=== PATIENT | male | born 1970 | race Caucasian/White ===

== ENCOUNTER → 2017-03-30 | Outpatient (CLI) | payer BC | END | disposition home or self-care (01) | LOC: GMAJ 10:55 | PROVIDERS: ATTEND Family Medicine | DX: Z00.00 Encounter for general adult medical examination without abnormal findings (principal) ==

== ENCOUNTER → 2017-05-22 | Outpatient (CLI) | payer BC ==
--- NOTE | 2017-05-22 15:15 | CT ---
EXAM DESCRIPTION: Abdoment/Pelvis w/o Contrast CLINICAL HISTORY: LEFT LOWER QUADRANT PAIN COMPARISON: None Available TECHNIQUE: CT of the abdomen and Pelvis was performed without IV contrast. This exam was performed according to our departmental dose-optimization program, which includes automated exposure control, adjustment of the mA and/or kV according to patient size and/or use of iterative reconstruction technique. FINDINGS: No lung base abnormality. No pneumoperitoneum, adenopathy or ascites. No abdominal aortic aneurysm. No calcified gallstone. The liver, spleen, pancreas, adrenals and kidneys are unremarkable for noncontrast technique. No dilated small bowel loops or mesenteric inflammation. No bladder wall thickening. The prostate is not enlarged. No colonic wall thickening or pericolonic inflammation. Normal appendix. There is a moderate amount stool and gas scattered throughout the colon. No acute bone lesion. IMPRESSION: Moderate amount of colonic stool and gas, otherwise unremarkable exam. Electronically signed by: Hal Ba MD 05/22/2017 3:14 PM BUSHLER
== END ==
LOC: CT 09:09
PROVIDERS: ATTEND Internal Medicine Gastroenterology
DX: R10.32 Left lower quadrant pain (principal)

== ENCOUNTER → 2018-06-28 | Outpatient (CLI) | payer BC ==
--- NOTE | 2018-06-28 16:58 | MRI ---
EXAM DESCRIPTION: Brain w/o Contrast: MRI. CLINICAL HISTORY: R41.9. Unspecified symptoms and signs involving cognitive functions and awareness. COMPARISON: MRI scan of the brain without contrast 07/23/2015. TECHNIQUE: Multiplanar, high-field MRI unit, multiple diffusion sequences, multiple conventional sequences without contrast. FINDINGS: Normal FLAIR and T2-weighted signal in the periventricular white matter and farmer-white matter junctions of the cerebral hemispheres. . No hemorrhage, no cerebral edema, no mass-effect. Normal signal in the bilateral basal ganglia. Normal signal in the brainstem and cerebellar hemispheres. No hemorrhage, no cerebral edema, no mass-effect. Concordance of the diffusion and non-diffusion sequences with no diffusion restriction. Cortical sulci, ventricles, and other CSF spaces, and the subdural spaces are normally configured for patients age. No effacement or displacement. No midline shift. No extra-axial hemorrhage. Normal flow signal void in the major vessels of the [place], and the venous sinuses. IACs are symmetric bilaterally. Normal signal in the bilateral mastoid air cells. No mass effect in the bilateral cerebellopontine angles. Pituitary gland occupies most of the sella. Base of the cerebellar tonsils is at the level of the foramen magnum. Polyp versus mucosal retention cyst in the posterior inferior left maxillary antrum. Bilateral mucoperiosteal thickening in the antra and also in the ethmoid air cells. Similar findings on the prior study.. The bony calvarium is intact. IMPRESSION: 1. Normal MRI scan of the brain without gadolinium IV contrast. Normal farmer and white matter signal. No intra-axial extra-axial hemorrhage. No mass effect, no midline shift, and no cerebral edema. Stable since the prior study. 2. Normal noncontrast diffusion MRI images with no evidence of acute or subacute infarction or significant ischemia. Stable since the prior study. 3. Paranasal sinus disease was also seen on the prior study. Please see above details. Electronically signed by: Humberto Kingston MD 06/28/2018 4:55 PM CDT
== END ==
LOC: MRI 09:52
PROVIDERS: ATTEND Family Medicine
DX: R41.9 Unspecified symptoms and signs involving cognitive functions and awareness (principal); J34.9 Unspecified disorder of nose and nasal sinuses

== ENCOUNTER 2018-11-01 05:13 | Day surgery (SDC) | payer BC ==
[2018-11-01] MEDS ORDERED: LACTATED RINGERS 1,000 ML ONE (07:17)
[2018-11-01] MEDS ORDERED: cefOXitin SODIUM 2 GM INJ IVPB ONE (07:17)
[2018-11-01] MEDS ORDERED: SODIUM CHL 0.9% 50ML MIN-BAG+ 50 ML IVPB ONE (07:22)
[2018-11-01] MEDS ORDERED: PROPOFOL 200 MG/20 ML VIAL IV ONE (10:00)
[2018-11-01] MEDS ORDERED: raNITIdine HCL INJ 25 MG/ML VIAL IV ONE (10:00)
[2018-11-01] MEDS ORDERED: ePHEDrine SULF 50 MG/ML IV ONE (10:00)
[2018-11-01] MEDS ORDERED: DEXAMETHASONE INJ 10 MG/ML VIAL IV ONE (10:00)
[2018-11-01] MEDS ORDERED: KETOROLAC TROMETHAMINE INJ 30 MG/ML VIAL IV ONE (10:00)
[2018-11-01] MEDS ORDERED: LIDOCAINE 1% 10 ML VIAL INJ ONE (10:00)
[2018-11-01] MEDS ORDERED: LACTATED RINGERS 1,000 ML IVS ONE (12:05)
[2018-11-01] MEDS ORDERED: LACTATED RINGERS 1,000 ML BAG IV ONE (12:05)
[2018-11-01] MEDS ORDERED: ROCURONIUM BROMIDE 10 MG/ML VIAL ONE (12:20)
[2018-11-01] MEDS ORDERED: KETAMINE HCL 50 MG/ML SYG IV ONE (12:20)
[2018-11-01] MEDS ORDERED: fentaNYL CITRATE INJ 50 MCG/ML AMP ONE (12:20)
[2018-11-01] MEDS ORDERED: MIDAZOLAM INJ 2 MG/2 ML VIAL ONE (12:20)
[2018-11-01] MEDS ORDERED: BUPIVACAINE 0.5% W/EPI 30 ML VIAL INJ ONE (12:23)
[2018-11-01] MEDS ORDERED: LIDOCAINE 2 % GEL 5 ML TUBE TOP ONE (12:23)
[2018-11-01] MEDS ORDERED: SUGAMMADEX SODIUM 200 MG/2 ML VIAL IV ONE (13:57)
[2018-11-01 14:00] VITALS: O2SAT 96
--- NOTE | 2018-11-01 14:24 | OP ---
DATE OF PROCEDURE: 11/01/18 PREOPERATIVE DIAGNOSIS: 1. Internal and external hemorrhoids, bleeding and pain, grade 3 essentially. POSTOPERATIVE DIAGNOSIS: 1. Internal and external hemorrhoids, bleeding and pain, grade 3 essentially. PROCEDURE: 1. Complete excision of internal and external hemorrhoids x2. 2. Bilateral pudendal nerve blocks for postoperative pain control. SURGEON: Vitor Salgado MD ANESTHESIA: General and local. FINDINGS: He had a very large internal and external complex, almost circumferentially. He had a wide patchoulis anus with thinned musculature. No known history of trauma. No evidence of intrasphincteric or perirectal abscess. COMPLICATIONS: None. ESTIMATED BLOOD LOSS : None. SPECIMEN: Left and right hemorrhoid complexes. PLAN: Discharge. INDICATION: The patient presented to the outpatient clinic with some rectal bleeding. He has a known history of prolapsing spontaneously reducing and sometimes manually reducing hemorrhoids. No clinical evidence of rectal prolapse. He presented with pain, so there was suspicion of an abscess, but on initial physical examination, I could not appreciate an abscess nor did he have fevers or chills, but good possibility of an intrasphincteric or deeper abscess was discussed and will be evaluated during surgery. Also, the fact that these are extensive hemorrhoids and may require more than one procedure. We are going to combine excision with possible banding as well. He understood the risks and benefits and postoperative recovery. PROCEDURE: He was brought to the Operative Suite in supine position. General anesthesia was induced. He was placed in a prone, jackknife position with gluteal cheeks taped apart, prepped and draped in sterile fashion. Digital rectal exam revealed no masses. Again, he had a wide patchoulis anus with thinned musculature, but he did have what appeared to be intact intrasphincteric groove, large internal and external components, both right and left, anterior, mid and posterior hemorrhoid complexes. Naturally, for real estate purposes, we would be unable to excise all of them completely. As we did anal speculum exam, I was able to get the majority of the left lateral and again he did have a wide anal canal, so loss of tissue was not a huge concern for postoperative stricture, so I ligated the base with 3-0 Vicryl in the left lateral and then elliptical incision to the external perianal skin beyond the external component and then we took it out down to the internal sphincter muscles, preserving this muscle, and undermined a bit to the externals on either side. Once this was done, we had good hemostasis. We then closed in a running locking fashion and able to grab the internals in the area on both sides of this, so essentially completely removing that large left complex. The same procedure was performed on the right although it seemed larger over here. He had such a lateral mid component that taking the right anterior, right posterior and just leave that large mid one, so we were able again to take a wide excision on the middle hemorrhoid and then combine the anterior and posterior bit with the closure. Internal sphincter muscle was preserved. A lot of local anesthesia was placed and based on anatomic landmarks, we performed bilateral pudendal nerve blocks with 3 mL of 0.5% Marcaine with epinephrine on each side, additional lidocaine at the incisions and surrounding area. On examination, there were a few hemorrhoids remaining, of course, but at this point our bands were breaking secondary to I think the heat processing, so no bands were placed, but it really looked like we an excellent result without any additional banding at this point. Dressing was placed with mesh panties and some lidocaine jelly. He was then awakened and taking to the Recovery Room in stable condition to be discharged. #[id number] cc: Vitor Stephens MD [facility]ENTER[facility]em[facility]
[2018-11-01 15:58] VITALS: BP 122/90; TEMP 97.7
== END 2018-11-01 15:50 ==
LOC: AMB 05:13
PROVIDERS: ATTEND Surgery
DX: K64.2 Third degree hemorrhoids (principal); G40.909 Epilepsy, unspecified, not intractable, without status epilepticus; Z79.899 Other long term (current) drug therapy
CPT/HCPCS: 00902; 36415; 46260; 80048; 85025; J0694; J1100; J1885; J2250; J2780; J3010; J3490; J7050; J7120

== ENCOUNTER → 2019-01-24 | Outpatient (CLI) | payer BC | LOC: GMAJ 17:01 | PROVIDERS: ATTEND Family Medicine | DX: R56.9 Unspecified convulsions (principal) ==

== ENCOUNTER 2019-02-05 12:14 | Emergency (ER) | payer BC ==
[2019-02-05] MEDS ORDERED: KETOROLAC TROMETHAMINE INJ 30 MG/ML VIAL IV ONE (12:36)
--- NOTE | 2019-02-05 12:38 | ED.PDOC ---
History of Present Illness - General Chief Complaint: Chest Pain/NE Stated Complaint: Intermittent CP Time Seen by Provider: 02/05/19 12:20 Source: patient Exam Limitations: no limitations - History of Present Illness Initial Comments: 48 yo M with hx of epilepsy, GERD who presents for midsternal sharp non radiating intermittent CP for the past 3-4 days, episodes last 3-5 seconds, today has had associated SOB with the CP. Mild dry intermittent cough. Denies f/c, congestion, abd pain, n/v/d, edema. No hx of CAD, PE, DVT. Allergies/Adverse Reactions: Allergies NO KNOWN ALLERGY Allergy (Verified 02/05/19 12:38) Home Medications: Ambulatory Orders Dexlansoprazole [Dexilant] 60 mg PO DAILY 11/23/14 Ascorbic Acid [Vitamin C] 2,000 mg PO DAILY 10/29/18 Lamotrigine [Lamictal] 200 mg PO DAILY 10/29/18 Multi Vitamin 1 tablet PO DAILY 10/29/18 Probiotic 1 tablet PO DAILY 10/29/18 Super B Complex Maxi 1 tablet PO DAILY 10/29/18 Zyrtec 1 tablet PO DAILY 10/29/18 Review of Systems - Review of Systems Constitutional: Denies: chills, fever EENTM: States: no symptoms reported Respiratory: States: short of breath. Denies: cough, orthopnea, stridor, wheezing Cardiology: States: chest pain. Denies: edema, palpitations, syncope Gastrointestinal/Abdominal: Denies: abdominal pain, constipation, diarrhea, nausea, vomiting Genitourinary: Denies: dysuria, frequency, hematuria Musculoskeletal: Denies: back pain, neck pain Skin: Denies: change in color, rash Neurological: Denies: headache, numbness, weakness Endocrine: Denies: increased thirst, increased urine Hematologic/Lymphatic: Denies: easy bleeding, easy bruising Past Medical History (General) - Patient Medical History Hx Seizures: Yes Hx Stroke: No Hx Dementia: No Hx Asthma: No Hx of COPD: No Hx Cardiac Disorders: No Hx Congestive Heart Failure: No Hx Pacemaker: No Hx Hypertension: No Hx Thyroid Disease: No Hx Diabetes: No Hx Gastroesophageal Reflux: No Hx Renal Disease: No Hx Cancer: No Hx of HIV: No Hx Hepatitis C: No Hx MRSA: No - Vaccination History Hx Influenza Vaccination: No - Social History Hx Tobacco Use: No Hx Alcohol Use: No Hx Substance Use: No Hx Substance Use Treatment: No Hx Depression: No Family Medical History - Family History Mother Family History: No Known Physical Exam - Physical Exam General Appearance: Alert, Comfortable, No apparent distress, Well Developed, Well Nourished Neck: full range of motion, supple Respiratory: chest non-tender, lungs clear, normal breath sounds, no respiratory distress, no accessory muscle use Cardiovascular/Chest: normal peripheral pulses, regular rate, rhythm, no edema, no gallop, no JVD, no murmur Peripheral Pulses: radial,right: 2+, radial,left: 2+ Gastrointestinal/Abdominal: normal bowel sounds, non tender, soft, no organomegaly, no pulsatile mass Extremity: normal range of motion, non-tender, normal inspection, no pedal edema, no calf tenderness, normal capillary refill Neurologic: no motor/sensory deficits, alert, normal mood/affect, oriented x 3 Skin Exam: normal color, warm/dry Lymphatic: no adenopathy Progress - Progress Progress: 02/05/19 15:09 I have explained and reviewed all results with the pt. I explained that emergent conditions may arise and to return to the ER for new, worsening, or any persistent conditions. I've explained the importance of f/u for recheck. All questions and concerns addressed at this time. Pt understands and agrees with plan. Pt well appearing, NAD, is stable for discharge. Nano Presley MD Emergency Medicine Physician Billing Number [id number] - Results/Orders Results/Orders: 02/05/19 12:30 EKG STAT Laboratory Results - last 24 hr 02/05/19 02/05/19 02/05/19 12:35 12:35 12:35 WBC 7.1 RBC 4.73 Hgb 14.3 Hct 41.3 L MCV 87.3 MCH 30.3 MCHC 34.7 RDW 12.2 Plt Count 240 MPV 8.4 Absolute Neuts (auto) 4.50 Absolute Lymphs (auto) 1.90 Absolute Monos (auto) 0.50 Absolute Eos (auto) 0.10 Absolute Basos (auto) 0.10 Neutrophils % 63.8 Lymphocytes % 27.3 Monocytes % 7.0 Eosinophils % 0.9 L Basophils % 1.0 D-Dimer, Quantitative Sodium 139 Potassium 3.7 Chloride 104 Carbon Dioxide 22 Anion Gap 16.7 BUN 16 Creatinine 1.03 BUN/Creatinine Ratio 15.5 Random Glucose 121 H Serum Osmolality 280.0 Calcium 8.6 Total Bilirubin 0.3 AST 26 ALT 21 Alkaline Phosphatase 69 Troponin I < 0.02 Serum Total Protein 6.7 Albumin 4.5 Globulin 2.2 L Albumin/Globulin Ratio 2.0 H 02/05/19 02/05/19 12:36 14:36 WBC RBC Hgb Hct MCV MCH MCHC RDW Plt Count MPV Absolute Neuts (auto) Absolute Lymphs (auto) Absolute Monos (auto) Absolute Eos (auto) Absolute Basos (auto) Neutrophils % Lymphocytes % Monocytes % Eosinophils % Basophils % D-Dimer, Quantitative 0.19 Sodium Potassium Chloride Carbon Dioxide Anion Gap BUN Creatinine BUN/Creatinine Ratio Random Glucose Serum Osmolality Calcium Total Bilirubin AST ALT Alkaline Phosphatase Troponin I < 0.02 Serum Total Protein Albumin Globulin Albumin/Globulin Ratio CXR: EXAM: XR Chest, 2 Views CLINICAL HISTORY: CP TECHNIQUE: Frontal and lateral views of the chest. COMPARISON: No relevant prior studies available. FINDINGS: Limitations: None. Lungs: Unremarkable. No consolidation. Pleural space: Unremarkable. No pneumothorax. Heart: Unremarkable. No cardiomegaly. Mediastinum: Unremarkable. Bones/joints: Unremarkable. IMPRESSION: No acute findings in the chest. Electronically signed by: Inga Temple MD 02/05/2019 1:49 PM FABRIC STRETCHER Vital Signs - 24 hr 02/05/19 02/05/19 02/05/19 12:15 12:23 13:00 Temperature 97.6 F Pulse Rate [ 76 76 80 Monitor] Respiratory 18 18 18 Rate Blood Pressure 146/89 [L brachial] O2 Sat by Pulse 97 98 Oximetry 02/05/19 02/05/19 14:00 15:00 Temperature Pulse Rate [ 66 62 Monitor] Respiratory 16 16 Rate Blood Pressure 123/78 129/86 [L brachial] O2 Sat by Pulse 98 98 Oximetry - EKG/XRAY/CT EKG: Sinus - sinus arrhythmia, no ST T wave changes Departure - Departure Clinical Impression: Chest pain, unspecified Qualifiers: Chest pain type: unspecified Qualified Code(s): R07.9 - Chest pain, unspecified Time of Disposition: 15:03 Disposition: Discharge to Home or Self Care Health Concerns: condition: stable Departure Forms: ED Discharge - Pt. Copy, Patient Portal Self Enrollment Instructions: DI for Chest Pain Referrals: Vitor Stephens MD [Primary Care Provider] - 1-5 Days TOÑITO LANCE MD [Consulting Staff] - 1-5 Days Home Medications: Ambulatory Orders Dexlansoprazole [Dexilant] 60 mg PO DAILY 11/23/14 Ascorbic Acid [Vitamin C] 2,000 mg PO DAILY 10/29/18 Lamotrigine [Lamictal] 200 mg PO DAILY 10/29/18 Multi Vitamin 1 tablet PO DAILY 10/29/18 Probiotic 1 tablet PO DAILY 10/29/18 Super B Complex Maxi 1 tablet PO DAILY 10/29/18 Zyrtec 1 tablet PO DAILY 10/29/18 Additional Instructions: Follow up: [facility] As needed, if symptoms worsen
[2019-02-05 12:39] VITALS: TEMP 97.6
--- NOTE | 2019-02-05 13:51 | RAD ---
EXAM: XR Chest, 2 Views CLINICAL HISTORY: CP TECHNIQUE: Frontal and lateral views of the chest. COMPARISON: No relevant prior studies available. FINDINGS: Limitations: None. Lungs: Unremarkable. No consolidation. Pleural space: Unremarkable. No pneumothorax. Heart: Unremarkable. No cardiomegaly. Mediastinum: Unremarkable. Bones/joints: Unremarkable. IMPRESSION: No acute findings in the chest. Electronically signed by: Inga Temple MD 02/05/2019 1:49 PM INSTRUCTIONAL MEDIA SERVICES TECHNICIAN
[2019-02-05 14:14] VITALS: O2SAT 98
[2019-02-05 15:06] VITALS: BP 129/86
== END 2019-02-05 15:21 | disposition home or self-care (01) ==
LOC: ER 12:14
DX: R07.2 Precordial pain (principal); R05 Cough; R06.02 Shortness of breath; I49.9 Cardiac arrhythmia, unspecified; G40.909 Epilepsy, unspecified, not intractable, without status epilepticus; K21.9 Gastro-esophageal reflux disease without esophagitis; Z79.899 Other long term (current) drug therapy
CPT/HCPCS: 36415; 71046; 80053; 84484; 85025; 85379; 93005; J1885

== ENCOUNTER → 2019-03-29 | Outpatient (CLI) | payer BC | LOC: GMAJ 14:32 | PROVIDERS: ATTEND Family Medicine | DX: R11.2 Nausea with vomiting, unspecified (principal) ==

== ENCOUNTER → 2019-03-30 | Outpatient (CLI) | payer BC ==
--- NOTE | 2019-03-30 15:03 | US ---
EXAM DESCRIPTION: Abdomen,Complete: Ultrasound. CLINICAL HISTORY: 49 years MaleNAUSEA WITH VOMITING COMPARISON: None Available. TECHNIQUE: Transabdominal scanning: grayscale and Doppler modes. FINDINGS: Gallbladder: May be slightly contracted. No stones or sludge. Normal wall thickness 2.7 mm with no fluid. Nontender with transducer pressure. Common bile duct: Normal echoes and normal caliber 5.1 mm. Liver: Long axis right lobe 15.7 cm. Minimally increased echogenicity of the liver. Visualization of the left lateral hepatic segment limited due to shadowing from bowel gas. Physiologic blood flow and normal caliber of the ducts. Smooth capsule with no ascites. Pancreas: Normal echogenicity with duct not visualized.. Abdominal aorta: Normal caliber from the proximal segment to the distal bifurcation. IVC: visualized; normal caliber. Spleen normal echogenicity; long axis measurement is 15.2 cm. Right kidney: Increased echogenicity of the cortex but decreased compared to the liver. Thickness 12 mm. Lobulated capsule. 11 cm long axis. No echogenic stones or hydronephrosis. Left kidney: 9.4 cm long axis with increased echogenicity of the cortex but decreased compared to the liver and spleen. Cortical thickness 12 mm. No echogenic stones or hydronephrosis. IMPRESSION: 1. Minimal steatosis of the liver but normal size. Physiologic ducts and vascularity. Smooth capsule with no ascites. Gallbladder and extrahepatic ducts are negative. Pancreas unremarkable. 2. Bilateral cortical atrophy with overall decreased size of the left kidney and increased echogenicity bilaterally. This can indicate medical renal disease. Not well seen on the prior CT scan. 2 cyst in the right kidney seen on the prior CT scan are not visualized on this study today. 3. Caliber of the IVC and aorta normal. Spleen mildly enlarged but normal homogeneous echoes. No ascites. Electronically signed by: Humberto Kingston MD 03/30/2019 3:01 PM [employer] WELLNESS DIRECTOR
== END ==
LOC: US 07:51
PROVIDERS: ATTEND Family Medicine
DX: K76.0 Fatty (change of) liver, not elsewhere classified (principal); N26.1 Atrophy of kidney (terminal); N28.9 Disorder of kidney and ureter, unspecified; N28.1 Cyst of kidney, acquired; R16.1 Splenomegaly, not elsewhere classified

== ENCOUNTER → 2019-10-06 | Outpatient (CLI) | payer BC | LOC: LAB.O 11:22 | PROVIDERS: ATTEND Psychiatry & Neurology Neurology | DX: G40.309 Generalized idiopathic epilepsy and epileptic syndromes, not intractable, without status epilepticus (principal); R53.82 Chronic fatigue, unspecified ==

== ENCOUNTER → 2020-02-22 | Outpatient (CLI) | payer BC | LOC: GMAJ 11:15 | PROVIDERS: ATTEND Family Medicine | DX: E29.1 Testicular hypofunction (principal); Z79.899 Other long term (current) drug therapy ==